=== PATIENT | male | born 1945 | race Caucasian/White ===

== ENCOUNTER → 2021-04-22 | Outpatient (CLI) | payer MEDICARE | LOC: KOH-I 08:00 | DX: R10.9 Unspecified abdominal pain (principal); K76.9 Liver disease, unspecified | CPT/HCPCS: 76705 ==

== ENCOUNTER → 2021-04-28 | Outpatient (CLI) | payer MEDICARE ==
[2021-04-28 17:16] LABS: HEMOGLOBIN 12.5 gm/dl (14.0-17.5); RED BLOOD COUNT 4.45 M/UL (4.20-5.50); WHITE BLOOD COUNT 14.1 K/UL (4.5-11.0)
[2021-04-28 17:38] LABS: BUN/CREATININE RATIO 20 (0-10)
== END ==
LOC: CT 16:00
PROVIDERS: Nurse Practitioner Family
DX: N18.9 Chronic kidney disease, unspecified (principal); H53.2 Diplopia; R42 Dizziness and giddiness; R26.81 Unsteadiness on feet
CPT/HCPCS: 36415; 70450; 80053; 82550; 82552; 83615; 83625; 84439; 84443; 85025

== ENCOUNTER → 2021-05-02 | Outpatient (CLI) | payer MEDICARE | LOC: CT 08:30 | DX: R10.9 Unspecified abdominal pain (principal); R93.5 Abnormal findings on diagnostic imaging of other abdominal regions, including retroperitoneum; K76.89 Other specified diseases of liver | CPT/HCPCS: 74170; Q9967 ==

== ENCOUNTER → 2021-05-05 | Outpatient (CLI) | payer MEDICARE | LOC: NM 08:36 | DX: R10.11 Right upper quadrant pain (principal); R07.9 Chest pain, unspecified; R11.0 Nausea; R93.2 Abnormal findings on diagnostic imaging of liver and biliary tract | CPT/HCPCS: 78227; A9537; J2805 ==

== ENCOUNTER → 2021-08-15 | Outpatient (CLI) | payer MEDICARE | LOC: EXRD 08:26 | DX: R07.81 Pleurodynia (principal); G89.29 Other chronic pain; R06.89 Other abnormalities of breathing; Y99.0 Civilian activity done for income or pay; S22.31XA Fracture of one rib, right side, initial encounter for closed fracture | CPT/HCPCS: 71101 ==

== ENCOUNTER → 2021-10-08 | Outpatient (CLI) | payer MEDICARE | LOC: EXRD 08:57 | DX: M54.50 Low back pain, unspecified (principal); M25.552 Pain in left hip; M43.9 Deforming dorsopathy, unspecified; M85.88 Other specified disorders of bone density and structure, other site; M47.816 Spondylosis without myelopathy or radiculopathy, lumbar region; M48.061 Spinal stenosis, lumbar region without neurogenic claudication; M19.012 Primary osteoarthritis, left shoulder | CPT/HCPCS: 72100; 73502 ==

== ENCOUNTER → 2021-11-11 | Outpatient (CLI) | payer MEDICARE | LOC: KOH-I 08:50 | DX: M51.16 Intervertebral disc disorders with radiculopathy, lumbar region (principal); M47.26 Other spondylosis with radiculopathy, lumbar region; R26.2 Difficulty in walking, not elsewhere classified; M48.061 Spinal stenosis, lumbar region without neurogenic claudication; M48.56XA Collapsed vertebra, not elsewhere classified, lumbar region, initial encounter for fracture | CPT/HCPCS: 72131 ==